=== PATIENT | female | born 1980 | race Hispanic/Latino ===

== ENCOUNTER 2016-11-12 09:28 | Day surgery (SDC) | payer OTHER ==
[~2016-11-12] VITALS: Ht 157.5 cm; Wt 108.0 kg
[~2016-11-12 09:28] MED LIST: 0.9% Sodium Chloride 1,000 ML IV SCH; METF-777 PO; Sodium Chloride LOK Flush 10 mL Syringe IV PRN; fentaNYL-PF 50 mCg/mL 2 mL Inj IVPUSH PRN
[2016-11-12 09:59] VITALS: BP 133/89; PULSE 78; O2SAT 99
[2016-11-12 10:57] VITALS: BP 128/81; PULSE 75; RESP 16; O2SAT 100
[2016-11-12 11:07] VITALS: BP 140/82; PULSE 72; RESP 16; O2SAT 100
[2016-11-12 11:17] VITALS: BP 151/105; PULSE 70; RESP 16; O2SAT 100
--- NOTE | 2016-11-12 14:09 | ENDO ---
[address] [address] ENDOSCOPY PROCEDURE PATIENT: GILDARDO MARTINEZ : 1980 MR#: [id number] ADMIT: 11/12/2016 JOB ID: [id number] DATE: 11/12/2016 PROCEDURE: Esophagogastroduodenoscopy. INDICATION: Chronic diarrhea. ANESTHESIA: Patient's ASA classification is two. Mallampati score is two. MEDICATIONS: 1. Versed 50 mg. 2. Fentanyl 125 mcg. INSTRUMENT USED: GIF H 180 J. PROCEDURE DETAILS: After informed consent was obtained, the patient was brought to the GI suite, where she was placed on oxygen via nasal cannula and monitored with continuous pulse oximeter, telemetry, and blood pressure monitoring. A time-out was performed, then she was placed in the left lateral decubitus position and medications were administered for sedation. A bite block was placed. The standard esophagogastroduodenoscopy scope was then inserted through the bite block and advanced under direct visualization to the second portion of the duodenum without difficulty. FINDINGS: 1. Normal appearing duodenal bulb, first and second portion. Multiple biopsies were obtained. 2. Normal-appearing pylorus, antrum, and gastric body. 3. Retroflexed views in the gastric body revealed a normal-appearing cardia and fundus. 4. Multiple random biopsies were obtained throughout the antrum and body of the stomach. 5. Normal appearing GE junction with a regular Z-line. 6. Normal appearing esophagus. IMPRESSION: Normal esophagogastroduodenoscopy to the second portion of the duodenum. RECOMMENDATIONS: 1. Await biopsy results. 2. Proceed to colonoscopy.
--- NOTE | 2016-11-12 14:11 | ENDO ---
[address] [address] ENDOSCOPY PROCEDURE PATIENT: GILDARDO MARTINEZ : 1980 MR#: [id number] ADMIT: 11/12/2016 JOB ID: [id number] DATE OF SERVICE: 11/12/2016 PROCEDURE PERFORMED: Colonoscopy. INDICATIONS: Diarrhea. ASA CLASSIFICATION, MALLAMPATI SCORE AND MEDICATIONS: Please see EGD report for ASA classification, Mallampati score and medications. INSTRUMENT USED: [employer]-[id number]. PREPARATION QUALITY: Good. PROCEDURE DETAILS: After completion of the EGD exam, the patient was turned and then a digital rectal exam was performed. Then, the pediatric colonoscope was inserted into the rectum and advanced under direct visualization to the terminal ileum which was identified by the presence of the ileocecal valve and villous appearing mucosa of the terminal ileum. Once the terminal ileum was reached, multiple biopsies were obtained. Then, the colonoscope was withdrawn back into the colon and random biopsies were obtained throughout the colon as we withdrew the colonoscope back into the rectum. In the rectum, retroflexion was performed. Following retroflexion, remaining air in the rectum was suctioned. The mucosa from rectum to terminal ileum appeared normal. IMPRESSION: Normal colonoscopy to terminal ileum. RECOMMENDATIONS: 1. Await biopsy results. 2. Follow up in GI clinic. COMPLICATIONS: None. ESTIMATED BLOOD LOSS: Less than 5 mL.
--- NOTE | 2016-11-15 14:14 | PATH ---
SURGICAL PATHOLOGY Attending Physician:Fiordaliza Villar CASE STATUS: Signed Out PATIENT NAME: GILDARDO MARTINEZ PID: [id number] : 1980 DATE COLLECTED:11/12/2016 22:19 SPECIMEN: 1: Duodenum, Biopsy 2: Gastric, Biopsy 3: Ileum, Biopsy 4: Colon, Biopsy CLINICAL HISTORY: 1). DUODENAL BIOPSY 2). GASTRIC RANDOM BIOPSY, TEST FOR H.PYLORI 3). TERMINAL ILEUM BIOPSY 4). RANDOM COLON BIOPSY FINAL DIAGNOSIS: 1.DUODENAL BIOPSY: NO DIAGNOSTIC ABNORMALITY. Negative for intraepithelial lymphocytosis, villous blunting, or other features of celiac sprue. Negative for Giardia organisms, dysplasia and malignancy. 2.GASTRIC RANDOM BIOPSIES: GASTRIC CORPUS AND ANTRUM WITH MILD CHRONIC GASTRITIS. Negative for Helicobacter organisms. Negative for intestinal metaplasia. No evidence of dysplasia or malignancy. 3.TERMINAL ILEUM, BIOPSY: NORMAL SMALL BOWEL MUCOSA. No significant inflammation identified. No evidence of dysplasia or malignancy. 4.COLON, RANDOM BIOPSIES: NORMAL COLONIC MUCOSA. No significant inflammation identified. No evidence of dysplasia or malignancy. ICD10 K29.70 GROSS DESCRIPTION: The specimens are received in formalin, labeled with the patient's name and sublabeled as the following: (1) duodenal BX; (2) gastric BX; (3) TI BX; (4) random colon BX. (1) The specimen consists of multiple fragments of muñoz-white, glistening, semi-translucent tissue (0.6 x 0.2 x 0.2 cm in aggregate). Section code: (1A) tissue. Specimen entirely submitted. (2) The specimen consists of multiple fragments of muñoz-white, glistening, semi-translucent tissue (0.5 x 0.2 x 0.1 cm in aggregate). Section code: (2A) tissue. Specimen entirely submitted. (3) The specimen consists of multiple fragments of muñoz-white, glistening, semi-translucent tissue (0.8 x 0.2 x 0.1 cm in aggregate). Section code: (3A) tissue. Specimen entirely submitted. (4) The specimen consists of multiple fragments of muñoz-white, glistening, rubbery, semi-translucent tissue (1.2 x 0.7 x 0.2 cm in aggregate). Section code: (4A) tissue. Specimen entirely submitted. ([id number]) MICRO DESCRIPTION: See diagnosis. ICD-9 CODES: CPT CODES: 1: 29273 2: 54530 3: 00955 4: 78654 Electronically Signed Out Doyle Del Castillo MD [facility] [address], [place] [address] Technical component performed at [facility], [address], [place], [address]
== END 2016-11-12 23:59 | disposition home or self-care (01) ==
LOC: END 09:28
PROVIDERS: ATTEND Internal Medicine Gastroenterology
DX: K29.50 Unspecified chronic gastritis without bleeding (principal); R19.7 Diarrhea, unspecified; R14.0 Abdominal distension (gaseous); E11.9 Type 2 diabetes mellitus without complications; K27.9 Peptic ulcer, site unspecified, unspecified as acute or chronic, without hemorrhage or perforation; E66.01 Morbid (severe) obesity due to excess calories; Z68.41 Body mass index [BMI] 40.0-44.9, adult; Z79.84 Long term (current) use of oral hypoglycemic drugs
CPT/HCPCS: 43239; 45380; 99153; G0500; J2250; J3010; J7030